=== PATIENT | female | born 1960 | race Caucasian/White ===

== ENCOUNTER → 2016-09-03 | Outpatient (CLI) | payer MEDICARE, BC ==
[~2016-09-03] MED LIST: ASPI81TA2 PO; BUPIVACAINE MPF 0.25% 10 ML VIAL. ONE; CYCL10TA2 PO; GABA-586 PO; HYDR-2762 PO; LACT1CAP2 PO; LEVO75TA PO; MECL25TA3 PO; METO-269 PO; MOVANTIK25 MG PO; MULT1TAB52 PO; OMEG1CAP6 PO; QUIN20TA7 PO; SIMV40TA PO; TERB250T PO; TRAM200T20 PO; TRAM50TA PO; TRAMADOL; TRAZ50TA15 PO; methylPREDNISolone ACETATE 40 MG/ML VIAL. ONE; tramadol
--- NOTE | 2016-09-04 00:40 | PAIN ---
DATE OF SERVICE: 09/03/2016 DIAGNOSES: 1. Chronic pain syndrome. 2. Cervical radiculopathy with post-cervical laminectomy syndrome. 3. Lumbar radiculopathy with spinal cord stimulators both lumbar and cervical. HISTORY OF PRESENT ILLNESS: The patient is a 56-year-old female who returns for followup status post medication management with both tramadol extended release and hydrocodone. The patient is also taking some Movantik for constipation, Flexeril, trazodone and gabapentin with good balance of the medications. She has been on this for some time now with good results. The patient reports approximately 75-80% improvement overall with the medication regimen. The patient reports no side effects with the medications. Recently had some surgery with hemorrhoidectomy and a rectal prolapse repair, which was causing some increased pain, but did not use any medicines above or beyond her current regimen, that was in 06/2016. The patient reports her pain is now 6 on a scale of 10, mostly in the base of the neck and left upper extremity as well as the low back and left leg without significant change. No new motor or sensory deficits, no new bowel or bladder incontinence. Again, the patient has had appropriate medication [facility] reporting and appropriate urinalysis to date. We will have an urinalysis drawn today as well as random screening. PHYSICAL EXAMINATION: VITAL SIGNS: The patient's blood pressure is 139/89, pulse 73, respirations 20, temperature 98.1 degrees Fahrenheit, height is 5 feet 3 inches, weight is 176 pounds. GENERAL: The patient is awake, alert, oriented, appropriate, very pleasant demeanor. HEENT: Head shows normocephalic, atraumatic. Extraocular movements are intact and symmetrical. Oral cavity shows mucous membranes moist and pink. Dentition is intact. NECK: Shows anterior throat supple without palpable lymphadenopathy noted. Swallow reflex is symmetrical. Neck shows full rotation and motion including extension and flexion with good range without significant difficulty. CHEST: Shows normal on inspection. Breath sounds are clear to auscultation bilaterally. HEART: Shows S1 and S2 clear. ABDOMEN: Soft, nontender, nondistended. No palpable organomegaly is noted. No rebound or guarding demonstrated. BACK: Shows spine grossly in the midline, well healed surgical scars in the cervical and lumbar distributions. Cervical paraspinous muscle shows some moderate tenderness to palpation in the inferior aspect of the bilateral cervical paraspinous muscles, more on the left than the right, but present bilaterally without asymmetry or atrophy, hypertrophy on inspection. Lumbar spine shows some moderate tenderness with palpation, but again symmetrical without evidence of atrophy or hypertrophy and only in the low lumbar distribution, is diffusely tender. No radiation. No asymmetry. The patient shows good rotation and motion of the lumbar spine as well, both laterally as well as extension and flexion without difficulty. Easily palpable spinal cord stimulator generators are again identified which are nontender with palpation. The patient's extremities show upper extremity deep tendon reflexes 2+ in the biceps and triceps tendons. Lower extremities are 1+ in the patellar and tendo calcaneus tendons. Motor exam is strong with 5/5 network support technician strength, biceps and triceps flexion with some significant tenderness in the left hand with network support technician at the base of the thumb and patient has had some difficulty with this in the past as well. PLAN: Options were discussed with the patient at that time. The patient's old chart was reviewed as her current medication regimen and updated. Current review of systems updated today as well. we will refill patient's medication as written with instructions, side effects to be aware of discussed. Also, patient will have urinalysis today as a random screening. Also discussed the patient's left thumb and she has done well with injections in the carpometacarpal joint on the first digit, the thumb on the left hand. She would like to proceed with this again and is quite tender with palpation. Risks were discussed including but not limited to bleeding, infection, possibility of intravascular injection sequelae, spread of local anesthetic and numbness, side effects of steroid medication, damage to the joint and ____ bones of the hand, exacerbation of symptoms and poor results regarding pain control. The patient understands and wishes to proceed. The patient will return to clinic in approximately 90 days or sooner if necessary. The patient was counseled as to activity levels as well as side effects to be aware of. DIAGNOSIS: Osteoarthritis, left first carpometacarpal joint. PROCEDURE: Left carpometacarpal first digit thumb joint injection with sterile prep and drape under local anesthesia. MEDICATION INJECTED: Depo-Medrol 40 mg plus 1 mL of 0.25% bupivacaine after negative aspiration. CONDITION AT DISCHARGE: Stable. The patient tolerated the procedure well, had no complications. BLU OLIVARES MD DR: Terry JOB#: [id number] / [id number]
== END ==
LOC: PNCL 10:34
PROVIDERS: ATTEND Anesthesiology
DX: M18.12 Unilateral primary osteoarthritis of first carpometacarpal joint, left hand (principal); M54.16 Radiculopathy, lumbar region; M54.12 Radiculopathy, cervical region
CPT/HCPCS: 20600; J1030; J3490

== ENCOUNTER → 2016-12-03 | Outpatient (CLI) | payer MEDICARE ==
[~2016-12-03] MED LIST changes: -BUPIVACAINE MPF 0.25% 10 ML VIAL. ONE; -methylPREDNISolone ACETATE 40 MG/ML VIAL. ONE
--- NOTE | 2016-12-04 01:06 | PAIN ---
DATE OF SERVICE: 12/03/2016 DIAGNOSES: 1. Chronic pain syndrome. 2. Cervical radiculopathy with post-cervical laminectomy syndrome. 3. Lumbar radiculopathy with spinal cord stimulation, both lumbar and cervical. HISTORY OF PRESENT ILLNESS: The patient is a 56-year-old female who returns for followup status post medication management with tramadol extended release as well as Flexeril, gabapentin and hydrocodone for breakthrough pain. The patient reports she had been doing very well with the extended release gabapentin; however, her insurance coverage had changed. She is unable to obtain it ____ about $400 a month. She is unable to afford this currently. She does have some tramadol 50 mg, which are much cheaper. She has been taking these in lieu of this, but is not having nearly the pain relief and consistency of relief that she had with extended release. The patient is somewhat frustrated about this. She is taking about 3-4 hydrocodone a day because she is not able to get the extended release tramadol, which helps her significantly. The patient reports pain is anywhere from 4 to a 7 on a scale of 10, worse with walking activity, mainly in the base of the neck, shoulder on the left side, upper back, left arm, low back, left lower extremity as previously. The patient reports stimulators are still working well; however, she is getting good coverage from these. It has not helped the pain, but more than about 50%. Overall, she is about 75% better with her extended release tramadol, but again unable to get this, recently has been a problem and her pain has been worse. The patient reports no side effects with the medications except for constipation, which she is taking Movantik for, which works very well. PHYSICAL EXAMINATION: VITAL SIGNS: The patient's blood pressure is 133/83, pulse is 76, respirations are 20, and temperature 98.1 degrees Fahrenheit. Height is 5 feet 3 inches, weighs 179 pounds. GENERAL: The patient is awake, alert, oriented, appropriate, very pleasant demeanor. HEENT: Head shows normocephalic and atraumatic. Extraocular movements are intact, symmetrical. Oral cavity, mucous membranes are moist and pink. Dentition is intact. NECK: Shows anterior throat supple without palpable lymphadenopathy noted. Swallow reflex is symmetrical. The patient has a surgical scar noted on the right side. The patient shows good rotation and motion of cervical spine, both laterally as well as extension and flexion with some minor pain reported with extension, but not with forward flexion. Posterior cervical musculature shows some putx-hj-[id number] tenderness with palpation in the middle and lower distribution of the cervical paraspinous muscles, but only diffusely without radiation. CHEST: Shows normal on inspection. Breath sounds clear to auscultation bilaterally. HEART: Shows S1 and S2 clear. No murmurs are auscultated. ABDOMEN: Obese, soft, nontender, and nondistended. No palpable organomegaly. No rebound or guarding demonstrated. BACK: Shows spine grossly midline. There is a slight increase in thoracic kyphosis and some flattening of lumbar lordotic curvature. Well-healed surgical scar is noted once again. Lumbar paraspinous musculature shows some symmetry with inspection with palpation, shows some moderate tenderness with palpation throughout the middle and lower distribution of paraspinous musculature, but only diffusely without radiation. The patient has well-healed surgical scars also stimulator battery noted in the right posterior gluteus, which is nontender and mildly mobile. EXTREMITIES: The patient's upper extremities show deep tendon reflexes 2+ in the biceps and triceps tendons. Motor exam is strong with esl tutor strength rated at 5/5 as is dorsiflexion, extension, quadriceps and hamstring flexion, lower extremities at 5/5 and equal. Peripheral pulses are 2+ in radial distribution, posterior tibial and dorsalis pedis pulses are 1+ and equal. No peripheral edema is noted in any of the extremities bilaterally. Options were discussed with the patient. The patient's old chart was reviewed as her current medication regimen and updated. Current review of systems updated today as well. We will refill the patient's tramadol in a non-extended release that she is unable to obtain this right now due to cost, also, we will have Flexeril and gabapentin renewed with instructions and side effects to be aware of, hydrocodone as well with instructions and side effects discussed, and we will try Nucynta at 200 mg extended release to substitute that for the tramadol, if this is able to be an affordable medication for her. She is going to check with her pharmacist and will contact us once she knows whether this is affordable and if so, she would try to see if it is effective for her as well. The patient was given prescription for Movantik as well as some samples that we had here today. Again instructions, side effects to be aware were discussed with all of the medications. The patient will continue to increase her activity as possible. She is using her inversion table at home, which she reports very good results with wheezing in the morning and evening ____ continue this as well. The patient will follow up in approximately 90 days or sooner if necessary and again will call with information regarding the availability of her medications. BLU OLIVARES MD DR: TYSON/abimael JOB#: [id number] / [id number]
== END | disposition home or self-care (01) ==
LOC: PNCL 13:19
PROVIDERS: ATTEND Anesthesiology
DX: M54.12 Radiculopathy, cervical region (principal); M54.16 Radiculopathy, lumbar region; G89.4 Chronic pain syndrome; M96.1 Postlaminectomy syndrome, not elsewhere classified
CPT/HCPCS: G0463

== ENCOUNTER → 2017-01-13 | Outpatient (CLI) | payer MEDICARE ==
[~2017-01-13] MED LIST changes: +BUPIVACAINE MPF 0.25% 10 ML VIAL. ONE; +methylPREDNISolone ACETATE 40 MG/ML VIAL. ONE
--- NOTE | 2017-01-14 02:48 | PAIN ---
DATE OF SERVICE: 01/13/2017 PROGRESS NOTE FOR PAIN CLINIC DIAGNOSES: 1. Chronic pain syndrome. 2. Cervical radiculopathy with post-cervical laminectomy syndrome. 3. Chronic lumbar radiculopathy with spinal cord stimulators both cervical and lumbar stenosis. HISTORY OF PRESENT ILLNESS: The patient is a 56-year-old female, who returns for followup status post medication management. The patient is able to get her tramadol extended release covered once again through her insurance provider and she is getting that refilled currently. The patient also taking hydrocodone for breakthrough pain. I have been seen her in November with evaluation refills of those at that time, we tried Nucynta; however, she did not ____ filled, because the approval came through for her extended release tramadol in the meantime, the patient reports doing well with medications. No new side effects or other complaints, reports this does decrease the pain about ____. Her chief complaint today is her left hand and thumb was significant pain in the carpometacarpal joint, on the first digit of the thumb in the left hand, she has had difficulty with this in the past. We have an injection the joint before with excellent results. She had about 100% relief for 4 months after the last injection. The patient reports otherwise doing fairly well. No new motor or sensory deficits, no new changes. PHYSICAL EXAMINATION: VITAL SIGNS: Today, the patient's blood pressure is 151/87, pulse 81, respirations are 18, temperature is 97.8 degrees Fahrenheit, weight 179 pounds. GENERAL: The patient is awake, alert, oriented, appropriate, very pleasant demeanor. HEENT: Head shows normocephalic, atraumatic. Extraocular movements are intact, symmetrical. Oral cavity, mucous membranes are moist and pink. Dentition is intact. NECK: Shows anterior throat supple without palpable lymphadenopathy noted. Swallow reflex is symmetrical. CHEST: Shows normal on inspection. Breath sounds are clear to auscultation bilaterally. HEART: Shows S1 and S2 clear. ABDOMEN: Soft, nontender, nondistended. No palpable organomegaly. No rebound or guarding demonstrated. BACK: Shows spine grossly midline. There is some moderate tenderness with palpation in the posterior cervical musculature as well as the lumbar paraspinous musculature, but appears roughly symmetrical. No atrophy, hypertrophy, no radiation of pain demonstrated. The patient has spinal cord stimulator is easily palpable and nontender as well. Options were discussed with the patient and the patient's old chart was reviewed as her current medication regimen and updated. Current review of systems updated today as well. We will proceed with left carpometacarpal injection first digit on the left hand and thumb. Risks were again discussed including, but not limited to bleeding, infection, possibility of intravascular injection sequelae, spread of local anesthetic and numbness, side effects of steroid medication and exposure to fluoroscopy and poor results regarding pain control. The patient understands and wishes to proceed. The patient will return to clinic in approximately 4 weeks for followup as scheduled and will refill her tramadol extended release as well. The patient was given instruction as well as side effects to be aware of with tolerated procedure, but also with medications. Also, the patient has a spinal cord stimulator will be evaluated today and reprogrammed as necessary [email or web address] merchandising representative is here today to perform this based on those results, we will discuss either further reprogramming with the stimulator possible replacement in the future, etc. The patient will follow up as scheduled. DIAGNOSES: Primary osteoarthritis, left first carpometacarpal joint. PROCEDURE: Intra-articular joint injection left first carpometacarpal joint using local anesthetic under sterile prep and drape. Medication injected a total of 40 mg of Depo-Medrol plus total of 1 mL, 0.25% bupivacaine after negative aspiration. CONDITION AT DISCHARGE: Stable. The patient tolerated the procedure well, had no complications. BLU OLIVARES MD DR: TYSON/abimael JOB#: [id number] / [id number]
== END | disposition home or self-care (01) ==
LOC: PNCL 07:45
PROVIDERS: ATTEND Anesthesiology
DX: M19.042 Primary osteoarthritis, left hand (principal)
CPT/HCPCS: 20600; J1030; J3490

== ENCOUNTER → 2017-02-25 | Outpatient (CLI) | payer MEDICARE ==
[~2017-02-25] MED LIST changes: +ASPI-630 PO; -ASPI81TA2 PO; -BUPIVACAINE MPF 0.25% 10 ML VIAL. ONE; -methylPREDNISolone ACETATE 40 MG/ML VIAL. ONE
== END | disposition home or self-care (01) ==
LOC: PNCL 11:27
PROVIDERS: ATTEND Anesthesiology
DX: G89.4 Chronic pain syndrome (principal); M54.12 Radiculopathy, cervical region; M48.02 Spinal stenosis, cervical region; M48.06 Spinal stenosis, lumbar region; Z98.890 Other specified postprocedural states
CPT/HCPCS: G0463

== ENCOUNTER → 2017-04-21 | Outpatient (CLI) | payer MEDICARE ==
[~2017-04-21] MED LIST changes: +BUPR300T3 PO; +QUIN20TA17 PO; -QUIN20TA7 PO
--- NOTE | 2017-04-21 13:07 | PAIN ---
DATE OF SERVICE: 04/21/2017 DIAGNOSES: 1. Chronic pain syndrome. 2. Cervical radiculopathy with post-cervical laminectomy syndrome. 3. Lumbar radiculopathy. 4. Spinal cord stimulators, both cervical and lumbar. HISTORY OF PRESENT ILLNESS: The patient is a 56-year-old female who returns for followup status post spinal cord stimulator therapy as well as medication management. The patient is taking hydrocodone as well as Toradol, Flexeril and gabapentin. The patient reports she has been doing very well with this and indeed has been on very stable regimen for many years with the similar regimens of medication. The patient reports no significant side effects with about a 75% to 80% improvement overall with the medications and the spinal cord stimulators combined. The patient reports good functioning of her stimulators, both cervical and lumbar with easy chargeability in good duration of stimulation and good coverage of stimulation. The patient reports no new motor or sensory deficits, no new bowel or bladder incontinence or other complaints. The patient reports significant pain in the base of the neck, shoulders, more on the right than the left in the upper back and neck and also low back radiating to the posterior left lower extremity, again fairly well covered with the stimulator coverage on both areas. The patient reports the pain is 8 on a scale of 10 at its worst, 5 on average and 4 on scale of 10 the least; aching, shooting, burning, tingling and constant pain to some extent, more in the neck and the back. The patient reports it awakens her from sleep occasionally, not every night, sleeps about 4 hours a night at times and reposition and get back to sleep most times. The patient reports no new motor or sensory deficits, no new bowel or bladder incontinence or other complaints. PHYSICAL EXAMINATION: VITAL SIGNS: The patient's blood pressure 124/81, pulse 63, respirations 18, temperature 97.8 degrees Fahrenheit, height is 5 feet 3 inches, weight is 177 pounds. GENERAL: The patient is awake, alert, oriented, appropriate, very pleasant demeanor. HEENT: Head shows normocephalic, atraumatic. Extraocular movements are intact, symmetrical. Oral cavity, mucous membranes are moist and pink. Dentition is intact. NECK: Shows anterior throat supple without palpable lymphadenopathy noted. Swallow reflex is symmetrical. CHEST: Shows normal on inspection. Breath sounds are clear to auscultation bilaterally. HEART: Shows S1 and S2 clear. No murmurs auscultated. ABDOMEN: Obese, soft, nontender, nondistended. No palpable organomegaly is noted. No rebound or guarding demonstrated. BACK: Shows spine grossly in midline with well-healed surgical scar noted in the cervical distribution as well as in the lumbar distribution. Cervical paraspinous muscle shows some moderate tenderness to palpation diffusely bilaterally, but without radiation. EXTREMITIES: The patient's lower extremity showed deep tendon reflexes at 1+ in the patellar and tendo calcaneus tendons. Motor exam is strong with dorsiflexion, extension, quadriceps and hamstring flexion rated at 5/5. Upper extremity showed deep tendon reflexes 2+ in the biceps and triceps tendons. Motor exam is 5/5 with screen tender helper strength, biceps and triceps flexion. Peripheral pulses are 2+ radial distribution and 1+ posterior tibial and dorsalis pedis. No peripheral edema is noted in any of the extremities. Options were discussed with the patient and the patient's old chart was reviewed as her current medication regimen and updated. Current review of systems is updated today as well and we will continue the patient's medical management. The patient lives a fair distance from our office in [place] across state lines and we discussed previously with the patient as she is unable to fill her prescriptions in [place] where [facility] reporting is available. We would be unable to have her fill this in [place] or different state without reporting available. The patient has spoken with her primary care physician and he has agreed to fill the medications for her as she does live in [place] and he is in [place]. We discussed that we will be available for any type of further future advice or reevaluation of her medication regimen as we have done in the past, also available for any interventional need. She needs her spinal cord stimulator questions or maintenance. The patient understands and agrees and we will follow up with her primary care physician regarding her medication management from this point forward. BLU OLIVARES MD DR: TYSON/abimael JOB#: [id number] / [id number]
== END | disposition home or self-care (01) ==
LOC: PNCL 10:33
PROVIDERS: ATTEND Anesthesiology
DX: M54.16 Radiculopathy, lumbar region (principal); M54.12 Radiculopathy, cervical region; G89.4 Chronic pain syndrome
CPT/HCPCS: 99212

== ENCOUNTER → 2018-10-26 | Outpatient (CLI) | payer MEDICARE, OTHER ==
[~2018-10-26] MED LIST changes: -GABA-586 PO; +GABA300C18 PO; -HYDR-2762 PO; +HYDR-2765 PO; +HYDR-2769 PO; +RANI150C PO; +SIMV20TA3 PO; +TRAZ-118 PO; -TRAZ50TA15 PO
--- NOTE | 2018-10-27 01:49 | PAIN ---
DATE OF SERVICE: 10/26/2018 DIAGNOSES: 1. Chronic pain syndrome. 2. Cervical radiculopathy with cervical post-laminectomy syndrome. 3. Lumbar radiculopathy with spinal cord stimulation both cervical and lumbar. HISTORY OF PRESENT ILLNESS: The patient is a 58-year-old female who returns for followup, last seen in 2016. The patient was being managed with medication management. She has relocated this to a clinic in [place] as she lives there and is much closer to her home. She returns today with the complaint of her cervical stimulator generator having some messages on its recharging monitor that it is nearing its end of life term and is looking to investigate this as well as take care of the stimulators. The patient reports it worked very well for her. She gets very good stimulation both from the cervical stimulator and the lumbar stimulator and is very pleased with the stimulation she receives and does very well with very good pain control. The patient had a [employer] rep meet her here today at the clinic and indeed has investigated and interrogated the stimulator and it has a rechargeable life of about 3 months left and we will get her scheduled to replace this in the near future. The patient reports otherwise she is doing fairly well, still some pain in the base of the neck, left shoulder, upper extremities as well as the low back and left leg, but again very well controlled especially the low back and left leg with the stimulation and until recently in the neck and arm as well, very well controlled with the stimulator, not holding its charges well recently. The patient reports her pain is an 8 on a scale of 10 at its worst, 4 on average, 4 at its least and is a 4 today. Describes as aching, stabbing, constant in the neck and shoulder, again significantly reduced by about 75-80% with the stimulation both neck and low back. The patient reports no new motor or sensory deficits, no other changes. She has increased her distance walking, does work activities, household activities with greater ease and comfort, travels with greater ease and comfort with the stimulators on and sleeps well at night, occasionally wakes her from sleep with the neck and shoulder. Otherwise, she does fairly well. PHYSICAL EXAMINATION: VITAL SIGNS: The patient's blood pressure 141/95, pulse 74, respirations 16, temperature 98.2 degrees Fahrenheit, height is 5 feet 3 inches, weighs 176 pounds. GENERAL: The patient is awake, alert, oriented, appropriate, very pleasant demeanor. HEENT: Head shows normocephalic, atraumatic. Extraocular muscles are intact and symmetrical. Oral cavity: Mucous membranes moist and pink. Dentition intact. NECK: Shows anterior throat supple without palpable lymphadenopathy noted. Swallow reflex is symmetrical. CHEST: Shows normal on inspection. Breath sounds clear to auscultation bilaterally. HEART: Shows S1, S2 clear. No murmurs auscultated. ABDOMEN: Soft, obese, nontender, nondistended. No palpable organomegaly is noted. No rebound or guarding demonstrated. BACK: Shows spine grossly in the midline. Normal appearing cervical lordotic curvature with slightly increased thoracic kyphotic curvature and some mild flattening of lumbar lordotic curvature. Well-healed surgical scars noted in both the lumbar and cervical distribution from previous stimulator insertions. Easily palpable stimulator generator on the right mid low back and over the right posterior hip. The patient has well-healed surgical scars over the generators as well. The patient has good rotational motion of the lumbar spine as well as the cervical spine with extension and flexion forward and right and left lateral rotation of the cervical spine greater than 45 degrees closer to 90 degrees without difficulty. Low back shows 10 degrees without difficulty, right and left as well as extension and flexion in the lumbar spine as well. EXTREMITIES: The patient's upper extremities show deep tendon reflexes at 2+ in the biceps and triceps tendons, 1+ patellar and tendo calcaneus tendons. Motor exam is strong with 5/5 scalemaker strength, biceps, tricep flexion as well as dorsiflexion, extension, quadriceps and hamstring flexion all symmetrical. Peripheral pulses are 2+ radial, 1+ posterior tibial. No peripheral edema is noted in the extremities. Options were discussed with the patient. The patient's old chart was reviewed as her current medication regimen updated. Current review of systems updated today as well. We will schedule the patient for replacement of the cervical spinal cord stimulator generator in the near future. The patient will maintain charges of both these lumbar and cervical generators in the meantime and we will work with the [employer] shared services representative for changing the stimulator for the cervical generator as scheduled. BLU OLIVARES MD DR: TYSON/abimael JOB#: [id number] / [id number]
== END | disposition home or self-care (01) ==
LOC: PNCL 11:04
PROVIDERS: ATTEND Anesthesiology
DX: M54.16 Radiculopathy, lumbar region (principal); M54.12 Radiculopathy, cervical region; M96.1 Postlaminectomy syndrome, not elsewhere classified; G89.4 Chronic pain syndrome
CPT/HCPCS: G0463

== ENCOUNTER 2018-12-08 12:30 | Day surgery (SDC) | payer MEDICARE, OTHER ==
[~2018-12-08 12:30] MED LIST changes: +BACITRACIN 50,000 UNIT in IV NORMAL SALINE 500ML BAG 500 ML IRR ONE; -HYDR-2769 PO; +HYDROmorphone 2 MG/ML VIAL IV PRN; +IV RINGERS,LACTATED 1000ML 1,000 ML IV SCH; +MORPHINE SULFATE 2 MG/ML VIAL. IV PRN; +ONDANSETRON PF 4 MG/2 ML VIAL. IV PRN; +PROCHLORPERAZINE 10 MG/2 ML VIAL. IV PRN; +fentaNYL PF VIAL 100 MCG/2 ML VIAL IV PRN
--- NOTE | 2018-12-08 12:33 | PREOP HP ---
DATE OF SERVICE: 12/08/2018 PREOPERATIVE HISTORY AND PHYSICAL: DIAGNOSES: 1. Chronic pain syndrome. 2. Cervical radiculopathy with cervical post-laminectomy syndrome. 3. Lumbar radiculopathy with spinal cord stimulation, both cervical and lumbar. HISTORY OF PRESENT ILLNESS: This is a 58-year-old female who returns for evaluation of a spinal cord stimulator superior location. The patient reports she is having difficulty with keeping the battery charged and has some messages on the recharging monitor that it is nearing its end of life term and is looking to get this replaced. The patient reports this worked very well for her. She had good pain control and gets good stimulation from both the cervical stimulator and the lumbar stimulator. The patient had the [employer] rep meet with her as well and indeed the stimulator does need to be replaced with rechargeable life span. The patient reports otherwise doing fairly well. Still has some pain in the base of the neck, left shoulder, upper extremity as well as the low back and left leg, but again very well controlled, especially in the low back and left leg with the stimulation until recently in the neck and arm as well. The patient reports the pain is 8 on a scale of 10 at its worst, 4 on average, 4 at its least, aching, stabbing, constant in the neck and shoulder again significantly reduced by about 75-80% with the stimulation from the neck and the low back. PHYSICAL EXAMINATION: VITAL SIGNS: The patient's blood pressure is 141/95, pulse 74, respirations 16, temperature 98.2 degrees Fahrenheit, height is 5 feet 3 inches, weighs 176 pounds. GENERAL: The patient is awake, alert, oriented, appropriate, very pleasant demeanor. HEENT: Head shows normocephalic, atraumatic. Extraocular movements are intact and symmetrical. Oral cavity: Mucous membranes moist and pink. Dentition is intact. NECK: Shows anterior throat supple without palpable lymphadenopathy noted. Swallow reflex is symmetrical. CHEST: Shows normal on inspection. Breath sounds are clear to auscultation bilaterally. HEART: Shows S1, S2 clear. No murmurs auscultated. ABDOMEN: Soft, obese, nontender, nondistended. No palpable organomegaly is noted. No rebound or guarding demonstrated. BACK: Shows grossly midline spine, normal-appearing cervical lordotic curvature, slightly increased thoracic kyphotic curvature and some mild flattening of lumbar lordotic curvature. Well-healed surgical scars noted in both lumbar and cervical distribution from previous stimulator insertions, easily palpable stimulator generator in the right mid, low back and over the right posterior hip as well. The patient has well-healed scars over the generators on both places. The patient has good rotational motion of lumbar spine. EXTREMITIES: The patient's upper extremities show deep tendon reflexes 2+ in the biceps and triceps tendons, 1+ patellar and tendo calcaneus tendons. Motor exam is strong with 5/5 fashion marketer strength, bicep and tricep flexion as well as dorsiflexion, extension, quadriceps and hamstring flexion symmetrical. Peripheral pulses are 2+ radial, 1+ posterior tibia. No peripheral edema is noted in the upper or lower extremities. PLAN: The patient will be scheduled for replacement of the cervical spinal cord stimulator generator with [employer] replacement. We will have the [employer] guest services representative present as well for changing the stimulator for the cervical distribution as scheduled. BLU OLIVARES MD DR: TYSON/abimael JOB#: [id number] / [id number]
[2018-12-08] MEDS ORDERED: BACITRACIN 50,000 UNIT VIAL. IRR ONE (13:36)
[2018-12-08] MEDS ORDERED: LIDOCAINE 1%/EPI 1:100,000 20 ML VIAL. ONE ×5 (13:36→13:39)
[2018-12-08] MEDS ORDERED: IOHEXOL 300 MG/ML 50 ML VIAL. ONE (13:36)
[2018-12-08] MEDS ORDERED: ONDANSETRON PF 4 MG/2 ML VIAL. ONE (14:37)
[2018-12-08] MEDS ORDERED: LIDOCAINE 2% PF 5 ML VIAL. ONE (14:37)
[2018-12-08] MEDS ORDERED: PROPOFOL 20 ML IV ONE (14:37)
[2018-12-08] MEDS ORDERED: DEXAMETHASONE SOD PHOS 4 MG/ML VIAL ONE ×2 (14:38)
[2018-12-08] MEDS ORDERED: fentaNYL PF VIAL 100 MCG/2 ML VIAL ONE ×2 (14:38→17:21)
[2018-12-08] MEDS ORDERED: ROCURONIUM 50 MG/5 ML VIAL. ONE (14:38)
[2018-12-08] MEDS ORDERED: MIDAZOLAM HCL/PF 2 MG/2 ML VIAL. ONE (14:39)
[2018-12-08] MEDS ORDERED: ePHEDrine PF IN SALINE 50 MG/10 ML SYRINGE. IV ONE (15:37)
[2018-12-08] MEDS ORDERED: PHENYLEPHRINE in 0.9% NACL PF 1 MG/10 ML SYRINGE. IV ONE (16:16)
[2018-12-08] MEDS ORDERED: SEVOFLURANE > 120 MINUTES. IH ONE (17:09)
--- NOTE | 2018-12-08 17:09 | DISCH ---
DISCHARGE INSTRUCTIONS Condition on Discharge Condition on Discharge: Stable Activity After Discharge Activity Instructions for Disc: Activity as tolerated, Avoid exertion Bathing Instructions: Shower-keep dressing dry, No Tub Bath until see Lifting Instructions after Dis: No heavy lifting, Do not lift >10 pounds Exercise Instruction after Dis: Progress as tolerated Driving Instructions after Dis: Do not drive today Weight Bearing Status after Di: As tolerated Diet after Discharge Diet after Discharge: Regular Wound Incision Care Wound/Incision Care: Reinforce dressing PRN Contacting the DRSagar after DC Call your doctor for: Concerns you may have BLU OLIVARES MD Dec 08, 2018 17:09
[2018-12-08] MEDS: fentaNYL PF VIAL 100 MCG/2 ML VIAL IV PRN ×2 (17:23→17:36)
[2018-12-08] MEDS ORDERED: HYDR-2769 PO (17:39)
[2018-12-08] MEDS ORDERED: HYDROcodone/APAP 10/325 1 TAB TABLET PO ONE (18:00)
[2018-12-08 18:10] VITALS: BP 122/73
--- NOTE | 2018-12-09 09:31 | OP ---
DATE OF SURGERY: 12/08/2018 PROCEDURE NOTE: PREOPERATIVE DIAGNOSES: Chronic pain syndrome with cervical radiculopathy and cervical post-laminectomy syndrome, also with failure of a spinal cord stimulator battery at end of battery life. POSTOPERATIVE DIAGNOSES: Chronic pain syndrome with cervical radiculopathy and cervical post-laminectomy syndrome, also with failure of a spinal cord stimulator battery at end of battery life. PROCEDURE: Removal and replacement of a spinal cord stimulator generator. BLOOD LOSS: 25 mL. ANESTHESIA: General endotracheal and local at the site. COMPLICATIONS: None. DESCRIPTION OF PROCEDURE: The patient was consented for the procedure with risks discussed including, but not limited to bleeding, infection, possibility of revision of the entire system including wires instead of just the battery replacement for the generator as well as poor results regarding pain control and postoperative pain. The patient understands and wished to proceed. The patient was taken to the operating room #8 and ASA monitors were placed. General anesthesia was induced, general endotracheal. The patient was then rolled into the prone position with pressure points padded and breath sounds clear to auscultation bilaterally. The patient's back was then sterilely prepped and draped in usual fashion with sterile prep allowed to dry for 3 minutes prior to draping. The patient was draped in usual fashion. Examined the patient's back and the right superior lumbar paraspinous distribution of the located spinal cord stimulator for the cervical distribution generator that is for the cervical distribution using 1% without epinephrine, lidocaine was instilled in a transverse fashion beneath the previous surgical scar also in a transverse fashion. After this, using a 15 blade scalpel, the incision was made in a transverse fashion once again to encompass approximately 8 cm medial to lateral. Incision was continued into the superficial adipose tissue and fascia to expose the spinal cord stimulator generator that was exposed without difficulty using combination of blunt and dull dissection via electrocautery. Bipolar was used as well as pressure and irrigation to control any local hemorrhage which was very minimal at this time. The sutures were then examined and cut holding the generator in place and the generator was expressed from the generator pouch without difficulty. Generator leads were then removed with a [employer] screwdriver kit for the stimulator locking lead mechanism. Leads were removed without difficulty. New generator was then examined and the leads were placed in the inferior aspect row of the generator without difficulty. The superior leads row, however, would not advance past about mid distance of the lead and itself into the new generator. This was attempted several times without ability to advance the lead into the new generator on the superior upper row with any success. At this time, the pocket was reexamined and the lead was then dissected away from the scar tissue to the bifurcation as the patient has dual lead bifurcation on each of the original leads and this was removed as well dissecting from the scar tissue. Again, local hemorrhage was controlled using bipolar electrocautery as well as irrigation and local pressure. This was exposed and the old leads then removed with sutures removed, squeezed over the junction from the bifurcated lead were then removed without difficulty. The new bifurcated lead was then replaced over the old superior leads x 2 without difficulty and impedances were checked and the leads were locked over the squeeze on the bifurcated lead x 2. At this time, the new lead from bifurcation was then inserted into the superior aspect of the new generator without difficulty and with good impedance read in all leads upper and lower rows at this time and the leads were secured with a [employer] walking screwdriver mechanism as well. A pocket was reexamined and irrigated with bacitracin irrigation x 3, no significant local hemorrhage was identified after this. The generator and the leads were then replaced back into the pocket with the leads inferior and the generator on the most superficial aspect of the pocket. This was secured with #2 silk sutures to the anchoring devices on the lead to create a more medial pocket to the medial aspect of the pocket previously as the older stimulator was much larger than the newer one. This was placed without difficulty and the pocket was then reinspected, no local hemorrhage was noted, was then closed using 2-0 for the lower fascia interrupted suture fashion and then the running suture of 3-0 Vicryl for the skin closure. Mastisol, Steri-Strips and a sterile island Tegaderm dressing was then placed. The patient tolerated procedure well, had no immediate complications and was transferred to the recovery room in good awake and stable condition. The patient will follow up in approximately 1 week for wound check at that time. Also, [employer] claims service representative, Anna Mccartney, was present with reprogramming of the stimulator in the recovery room as well. BLU OLIVARES MD DR: TYSON/abimael JOB#: [id number] / [id number]
--- NOTE | 2019-01-02 10:31 | PDOC4 ---
OPERATIVE NOTE Date: Date: Dec 08, 2018 Pre-Op Diagnosis: failed spinal cord stimulator generator Post-Op Diagnosis: same Procedure Performed: removal and replacement SCS generator Surgeon: Gume Anesthesia Type: GEN Blood Loss: 15cc Specimans Obtained: old SCS generator Findings: as dictated Complications: none BLU OLIVARES MD January 02, 2019 10:31
== END 2018-12-08 18:35 | disposition home or self-care (01) ==
LOC: SURG 12:30
PROVIDERS: ATTEND Anesthesiology
DX: Z45.42 Encounter for adjustment and management of neurostimulator (principal); G89.4 Chronic pain syndrome; M96.1 Postlaminectomy syndrome, not elsewhere classified; Z88.1 Allergy status to other antibiotic agents; Z88.8 Allergy status to other drugs, medicaments and biological substances; M54.16 Radiculopathy, lumbar region; M54.12 Radiculopathy, cervical region
CPT/HCPCS: 63685; A7015; C1713; C1767; C1787; J0171; J1100; J2001; J2250; J2370; J2405; J2704; J3010; J3490; J7120; J7040; Q9967

== ENCOUNTER → 2018-12-22 | Outpatient (CLI) | payer MEDICARE, OTHER ==
[2018-12-08 18:10] VITALS: BP 122/73
[~2018-12-22] MED LIST changes: -BACITRACIN 50,000 UNIT in IV NORMAL SALINE 500ML BAG 500 ML IRR ONE; +HYDR-2769 PO; -HYDROmorphone 2 MG/ML VIAL IV PRN; -IV RINGERS,LACTATED 1000ML 1,000 ML IV SCH; -MORPHINE SULFATE 2 MG/ML VIAL. IV PRN; -ONDANSETRON PF 4 MG/2 ML VIAL. IV PRN; -PROCHLORPERAZINE 10 MG/2 ML VIAL. IV PRN; -fentaNYL PF VIAL 100 MCG/2 ML VIAL IV PRN
--- NOTE | 2018-12-23 00:45 | PAIN ---
DATE OF SERVICE: 12/22/2018 PROGRESS NOTE FOR PAIN CLINIC: DIAGNOSES: 1. Chronic pain syndrome. 2. Cervical radiculopathy with post-cervical laminectomy syndrome. 3. Lumbar radiculopathy with both cervical and lumbar spinal cord stimulator systems. HISTORY OF PRESENT ILLNESS: The patient is a 58-year-old female who returns for followup status post replacement of spinal cord stimulator generator for her cervical system distribution. The patient is now 2 weeks postop, reports that she is doing quite well, getting good stimulation in the neck and shoulders as she had previously, but some tenderness in the neck as well. The patient reports it is tingling, stabbing, sharp and constant at times, rates a 9 on a scale of 10 at its worst, 6 on average, 5 at its least, but is a 5 today. The patient reports no new motor or sensory deficits, no new bowel or bladder incontinence. There is some deeper pain that is near the wound where it is healing in the medial aspect of the area of the pocket on her right low to mid back. The patient reports otherwise doing fairly well. No new changes. No new bowel or bladder incontinence or other complaints. PHYSICAL EXAMINATION: VITAL SIGNS: The patient's blood pressure is 148/60, pulse 61, respirations 16, temperature 98.1 degrees Fahrenheit, weight is 175 pounds. GENERAL: The patient is awake, alert, oriented, appropriate, very pleasant demeanor. HEENT: Head shows normocephalic, atraumatic. Extraocular movements are intact and symmetrical. Oral cavity: Mucous membranes are moist and pink. Dentition is intact. NECK: Shows anterior throat supple without palpable lymphadenopathy noted. Swallow reflex symmetrical. CHEST: Shows normal with inspection. Breath sounds clear to auscultation bilaterally. HEART: Shows S1, S2 clear. No murmurs auscultated. ABDOMEN: Soft, nontender, nondistended. BACK: The patient's back shows spine grossly in the midline. Well-healed surgical scarring and first surgical scar from spinal cord stimulator generator replacement on the right of midline in the mid low back with Steri-Strips still in place, but no erythema, no significant tenderness. No drainage around the wound which is healing well with good scabbing and is likely dressed with very clean dressing and Tegaderm. Options were discussed with the patient. The patient's old chart was reviewed as her current medication regimen updated. Current review of systems updated today as well. We will have the patient keep the wound open to air at this time with a very light dressing over to air to circulate around the wound. The patient will increase her activity as tolerated and okayed for showering but no scrubbing or soaking of the wound for another 2 weeks. The patient will return to clinic at this time on as needed basis. The patient did have [employer] underwriting account representative present today with some programming done on the stimulator as well and reports good coverage of the areas of pain with the stimulator upon completion of this. BLU OLIVARES MD DR: TYSON/abimael JOB#: [id number] / [id number]
== END | disposition home or self-care (01) ==
LOC: PNCL 10:42
PROVIDERS: ATTEND Anesthesiology
DX: M54.12 Radiculopathy, cervical region (principal); M54.16 Radiculopathy, lumbar region; M96.1 Postlaminectomy syndrome, not elsewhere classified; G89.4 Chronic pain syndrome
CPT/HCPCS: G0463

== ENCOUNTER → 2019-04-10 | Outpatient (CLI) | payer MEDICARE, OTHER ==
--- NOTE | 2019-04-11 07:29 | PAIN ---
DATE OF SERVICE: 04/10/2019 PROGRESS NOTE FOR PAIN CLINIC DIAGNOSES: 1. Chronic pain syndrome. 2. Cervical radiculopathy with post-cervical laminectomy syndrome with spinal cord stimulator. 3. Lumbar radiculopathy with spinal cord stimulator. HISTORY OF PRESENT ILLNESS: The patient is a 58-year-old female who returns for followup, last seen on 12/22/2018. The patient had a spinal cord stimulator generator replaced on 12/08/2018 for her cervical system. She is having difficulty to having it hold the charge. She met with [employer] group sales representative today as well and our office and he confirms that it is no longer functional, is not holding charges, is not programmable and is dysfunctional and needs to be replaced. The patient reports still significant pain in the neck, shoulders, upper arms without coverage from the stimulator. Her lumbar stimulator, however, is working quite well. She does have 2 systems. The patient reports no new motor or sensory deficits or other complaints. Rates her pain as an 8 on a scale of 10 at its worst in the past week, 7 on average, 6 at its least and is 8 today. The patient reports no new changes or other complaints. PHYSICAL EXAMINATION: VITAL SIGNS: The patient's blood pressure 136/74, pulse 67, respirations 18, temperature 98.0 degrees Fahrenheit, and height is 5 feet 3 inches. GENERAL: The patient is awake, alert, oriented, appropriate, very pleasant demeanor. HEENT: Shows normocephalic, atraumatic. Extraocular movements are intact and symmetrical. Oral cavity, mucous membranes are moist and pink. NECK: Shows anterior throat supple. CHEST: Shows breath sounds clear to auscultation bilaterally. HEART: Shows S1, S2 clear. BACK: The patient's back shows spine grossly in midline. Well-healed surgical scars noted in the right low back with easily palpable spinal cord stimulator, which is slightly protruding on the lateral aspect of its incision site, but not tender with palpation. ASSESSMENT AND PLAN: Options were discussed with the patient. The patient's old chart was reviewed as her current medication regimen updated. Current review of systems updated today as well and we will make arrangements to replace the stimulator generator for her cervical system, the [employer] systems and group sales representative present today. We will make the arrangements through Surgery and have it replaced soon. BLU OLIVARES MD DR: Terry JOB#: [id number] / [id number]
== END | disposition home or self-care (01) ==
LOC: PNCL 14:27
PROVIDERS: ATTEND Anesthesiology
DX: M54.16 Radiculopathy, lumbar region (principal); M54.12 Radiculopathy, cervical region; G89.4 Chronic pain syndrome
CPT/HCPCS: G0463

== ENCOUNTER → 2019-05-11 | Day surgery (SDC) | payer MEDICARE, OTHER ==
[~2019-05-11] VITALS: Ht 160 cm; Wt 79.3 kg
[~2019-05-11] MED LIST changes: +BACITRACIN 50,000 UNIT in IV NORMAL SALINE 500ML BAG 500 ML IRR ONE; +DEXAMETHASONE SOD PHOS 4 MG/ML VIAL ONE; +ESOM40CA PO; +HYDROcodone/APAP 7.5/325MG 1 TAB TABLET ONE; +HYDROcodone/APAP 7.5/325MG 1 TAB TABLET PO ONE; +HYDROmorphone 2 MG/ML VIAL IV PRN; +IOHEXOL 300 MG/ML 50 ML VIAL. ONE; +IV RINGERS,LACTATED 1000ML 1,000 ML IV SCH; +LIDOCAINE 1% PF 2 ML VIAL. ID PRN; +LIDOCAINE 1%/EPI 1:100,000 20 ML VIAL. ONE; +LIDOCAINE 2% PF 5 ML VIAL. ONE; +MORPHINE SULFATE 2 MG/ML VIAL. IV PRN; +ONDANSETRON PF 4 MG/2 ML VIAL. IV PRN; +ONDANSETRON PF 4 MG/2 ML VIAL. ONE; +PHENYLEPHRINE in 0.9% NACL PF 1 MG/10 ML SYRINGE. IV ONE; +PROCHLORPERAZINE 10 MG/2 ML VIAL. IV PRN; +PROPOFOL 20 ML IV ONE; +SEVOFLURANE 61 TO 120 MINUTES. IH ONE; +SUCCINYLCHOLINE 200 MG/10 ML VIAL. ONE; +ePHEDrine PF IN SALINE 50 MG/10 ML SYRINGE. IV ONE; +fentaNYL PF VIAL 100 MCG/2 ML VIAL IV PRN; +fentaNYL PF VIAL 100 MCG/2 ML VIAL ONE
--- NOTE | 2019-05-11 13:42 | DISCH ---
DISCHARGE INSTRUCTIONS Condition on Discharge Condition on Discharge: Stable Activity After Discharge Activity Instructions for Disc: Activity as tolerated, Avoid exertion Bathing Instructions: Shower-keep dressing dry, No Tub Bath until see Lifting Instructions after Dis: No heavy lifting, Do not lift >10 pounds Exercise Instruction after Dis: Progress as tolerated Driving Instructions after Dis: Do not drive today Weight Bearing Status after Di: As tolerated Diet after Discharge Diet after Discharge: Regular Wound Incision Care Wound/Incision Care: Reinforce dressing PRN Contacting the DRSagar after DC Call your doctor for: Concerns you may have BLU OLIVARES MD May 11, 2019 13:41
[2019-05-11] MEDS: fentaNYL PF VIAL 100 MCG/2 ML VIAL IV PRN ×2 (14:05→14:12)
[2019-05-11 14:08] VITALS: BP 142/79
--- NOTE | 2019-05-12 00:28 | OP ---
DATE OF SURGERY: 05/11/2019 PREOPERATIVE DIAGNOSES: Post-lumbar laminectomy syndrome and post-cervical laminectomy syndrome. POSTOPERATIVE DIAGNOSES: Post-lumbar laminectomy syndrome and post-cervical laminectomy syndrome. PROCEDURE: Spinal cord stimulator generator removal and replacement. ANESTHESIA: General endotracheal. ESTIMATED BLOOD LOSS: 10 mL. COMPLICATIONS: None. DESCRIPTION OF PROCEDURE: The patient was consented for procedure with risks discussed including, but not limited to bleeding, infection, possibility of replacement of system as well as generator as well as postoperative pain and poor results regarding pain control group home. The patient understands and wished to proceed. The patient was taken to operating room, suite #9. General anesthesia was induced. The patient was placed in prone position with pressure points padded. Breath sounds clear bilaterally. The patient's back was then prepped and draped after 3 minutes of drying time. The patient was draped. The patient's right lumbar paraspinous distribution was showing easily palpable spinal cord stimulator generator. This area was then anesthetized in a transverse fashion, approximately 2 cm beneath the previous surgical scar from the last implantation of the generator with 1% lidocaine with 1:200,000 epinephrine. Using a 10 blade scalpel, the skin was incised through the anesthetized area in transverse fashion approximately 7 cm in length. Local hemorrhage was controlled using pressure and irrigation. The dissection was continued with Metzenbaum scissors to open up the pocket of the spinal cord stimulator generator, which was done without difficulty. Generator was expressed from the pocket without difficulty as well and removed, disconnected from the original spinal cord stimulator leads. A lower lead on the generator showed some bending and potential fracture on inspection, and this was replaced during the procedure as well and the spinal cord stimulator generator and the lead was intact and in very good condition. Old generator was removed. New generator was inspected. The new wires with bifurcating paddles were then ____; the old ones were removed, that is, the new were replaced with locking screws and a sheath placed over the locking screws on the bifurcating lead extensions. The new leads were then placed into the new generator. Impedances were checked with Mr. Blu Marx and all impedances showed good contact and good connectivity. At this time, the generator and new extension wires were placed into the pocket. For fitment, pocket was then inspected. No local hemorrhage was identified. Bacitracin irrigation was used x 3 and reinspected without local hemorrhage. The wires and generator were then replaced after locking the new leads along with the locking screwdriver mechanisms ____ the generator itself, placed into the pocket. Pocket was then closed with 2-0 interrupted Vicryl sutures and 3-0 running suture for the skin closure. Steri-Strips and Mastisol as well as island dressing were then applied. The patient tolerated procedure well, had no immediate complications, and was transferred to recovery room in good, stable, and awake condition. BLU OLIVARES MD DR: TYSON/abimael JOB#: [id number] / [id number]
--- NOTE | 2019-05-14 12:56 | PDOC4 ---
OPERATIVE NOTE Date: Date: May 11, 2019 Pre-Op Diagnosis: post laminectomy syndrome Post-Op Diagnosis: same Procedure Performed: SCS generator and bifurcated lead extension replacement Surgeon: Gume Anesthesia Type: GET Blood Loss: 10cc Specimans Obtained: SCS generator Findings: see dictation Complications: none Operative Note: see dictation BLU OLIVARES MD May 14, 2019 12:56
== END ==
LOC: SURG 10:07
PROVIDERS: ATTEND Anesthesiology
DX: M54.16 Radiculopathy, lumbar region (principal); M54.12 Radiculopathy, cervical region; M96.1 Postlaminectomy syndrome, not elsewhere classified; G89.4 Chronic pain syndrome
CPT/HCPCS: 63685; A7015; C1713; C1767; C1787; J0330; J1100; J1956; J2001; J2370; J2405; J2704; J3010; J3490; J7040; J7120; J0171; Q9967

== ENCOUNTER → 2019-05-18 | Outpatient (CLI) | payer MEDICARE, OTHER ==
[2019-05-11 14:08] VITALS: BP 142/79
[~2019-05-18] MED LIST changes: -BACITRACIN 50,000 UNIT in IV NORMAL SALINE 500ML BAG 500 ML IRR ONE; -DEXAMETHASONE SOD PHOS 4 MG/ML VIAL ONE; -HYDROcodone/APAP 7.5/325MG 1 TAB TABLET ONE; -HYDROcodone/APAP 7.5/325MG 1 TAB TABLET PO ONE; -HYDROmorphone 2 MG/ML VIAL IV PRN; -IOHEXOL 300 MG/ML 50 ML VIAL. ONE; -IV RINGERS,LACTATED 1000ML 1,000 ML IV SCH; -LIDOCAINE 1% PF 2 ML VIAL. ID PRN; -LIDOCAINE 1%/EPI 1:100,000 20 ML VIAL. ONE; -LIDOCAINE 2% PF 5 ML VIAL. ONE; -MORPHINE SULFATE 2 MG/ML VIAL. IV PRN; -ONDANSETRON PF 4 MG/2 ML VIAL. IV PRN; -ONDANSETRON PF 4 MG/2 ML VIAL. ONE; -PHENYLEPHRINE in 0.9% NACL PF 1 MG/10 ML SYRINGE. IV ONE; -PROCHLORPERAZINE 10 MG/2 ML VIAL. IV PRN; -PROPOFOL 20 ML IV ONE; -SEVOFLURANE 61 TO 120 MINUTES. IH ONE; +SIMV20TA18 PO; -SIMV20TA3 PO; -SUCCINYLCHOLINE 200 MG/10 ML VIAL. ONE; -ePHEDrine PF IN SALINE 50 MG/10 ML SYRINGE. IV ONE; -fentaNYL PF VIAL 100 MCG/2 ML VIAL IV PRN; -fentaNYL PF VIAL 100 MCG/2 ML VIAL ONE
--- NOTE | 2019-05-18 11:44 | PAIN ---
DATE OF SERVICE: 05/18/2019 PROGRESS NOTE FOR PAIN CLINIC DIAGNOSES: 1. Chronic pain syndrome. 2. Cervical radiculopathy with cervical post-laminectomy syndrome. 3. Lumbar radiculopathy with spinal cord stimulator both cervical and lumbar. HISTORY OF PRESENT ILLNESS: The patient is a 58-year-old female who returns for followup status post spinal cord generator replacement 1 week ago. The patient followed up for wound check and postop followup today. The patient reports she is doing very well with good coverage of the stimulator into the neck, shoulders as well as in the low back and left leg. The patient reports still some pain at the area of the surgery in the right low back as previous sharp, tight, shooting, tingling, stabbing at times and constant, aching at times as well, but good coverage with the stimulator and the battery is working well, it is holding a charge. So, we replaced it back in 12/08 as well, but the new generator could not hold the charge and we replaced it again 1 week ago as well as bifurcated wire to go with it as well. The patient reports her pain over the past week has been 7 on a scale of 10 at its worst, 5 on average, 5 at its least and is 5 today. The patient reports no new motor or sensory deficits, no fevers. No drainage of the wound. No other signs of infection or other complications at this time. PHYSICAL EXAMINATION: VITAL SIGNS: The patient's blood pressure is 144/79, pulse 75, respirations 18, temperature 98.0 degrees Fahrenheit, height is 5 feet 3 inches, weight is 186 pounds. GENERAL: The patient is awake, alert, oriented, appropriate, very pleasant demeanor. HEENT: Head shows normocephalic, atraumatic. Extraocular movements are intact and symmetrical. CHEST: Shows normal on inspection. Breath sounds clear bilaterally. HEART: Shows S1, S2 clear. BACK: Shows spine grossly in midline. Well-healing surgical scars noted in the right low back from stimulator generator replacement. Bandages were taken down and examined. Steri-Strips in place and intact. No drainage. Mild erythema around the edges of the tape of the Steri-Strips only. No streaking, no drainage, no significant tenderness. Other than that, the medial aspect of the pocket site, the patient reports there is a pulling, stabbing sensation on the inside, but not on the skin with palpation. EXTREMITIES: The patient's lower extremities show deep tendon reflexes at 1+ in the patellar and tendo calcaneus tendons. Motor exam is strong with 5/5 dorsiflexion, extension, quadriceps and hamstring flexion and symmetrical. PLAN: Options were discussed with the patient. The patient's old chart was reviewed as her current medication regimen updated. Current review of systems updated today as well and we will have the patient take Keflex for some mild erythema around the wound site just to cover all bases as the patient does have a considerable distance from the clinic and has had some reactions with tape and infections from blisters from the tape in the past. We will do this Keflex 500 mg twice daily for 10 days. The patient was given instruction as well as side effects to be aware with the medication and the patient will follow up in approximately 1 month or sooner as necessary for a wound check at that time. The patient will continue to use her stimulator as instructed with charging, etc. She is getting good coverage currently. BLU OLIVARES MD DR: TYSON/abimael JOB#: [id number] / [id number]
== END | disposition home or self-care (01) ==
LOC: PNCL 09:59
PROVIDERS: ATTEND Anesthesiology
DX: M54.12 Radiculopathy, cervical region (principal); M96.1 Postlaminectomy syndrome, not elsewhere classified; M54.16 Radiculopathy, lumbar region; G89.4 Chronic pain syndrome
CPT/HCPCS: G0463

== ENCOUNTER → 2021-08-12 | Outpatient (CLI) | payer MEDICARE ==
[2019-05-11 14:08] VITALS: BP 142/79
[~2021-08-12] MED LIST changes: +CYCL10TA19 PO; -CYCL10TA2 PO; -LEVO75TA PO; +LEVO75TA90 PO; +MECL-75 PO; -MECL25TA3 PO; +METF500T16 PO; +MULT-445 PO; -MULT1TAB52 PO
--- NOTE | 2021-08-12 16:50 | PDOC ---
Progress Note - Pain Clinic Date of Service: DOS: DATE: 08/12/21 TIME: 16:36 Diagnosis: Dx: Chronic pain syndrome Cervical radiculopathy with cervical postlaminectomy syndrome and cervical spinal cord stimulator system Lumbar radiculopathy with lumbar degenerative disease and lumbar spinal cord stimulator system History or Present Illness: HPI: 61-year-old female with a history of dual spinal cord stimulator systems one cervical one lumbar with recent replacement of cervical stimulator with [employer] generator now patient having inability to charge the lumbar stimulator which is Re5ult getting error messages on the content engineer in the content engineer system as well as having no stimulation sensation from the stimulator which was working very well. Patient reports increased pain in the bilateral lower extremities mostly on the left side which was previously well covered with the stimulator system. Patient reports no loss of motor function no bowel or bladder incontinence but significant pain increasing in the low back and in ability to charge the lumbar stimulator system. Physical Exam: VS: Blood pressure is 120/79 pulse 77 respirations 18 temperature 98.2 F height 5 feet 3 inches weight is 147 pounds PE: PHYSICAL EXAMINATION: GENERAL: The patient is awake, alert, oriented, appropriate, very pleasant in demeanor HEENT: Shows normocephalic, atraumatic. Extraocular movements are intact and symmetrical. Oral cavity: Mucous membranes moist and pink. Dentition is intact. NECK: Shows anterior throat supple without palpable lymphadenopathy noted. Swallow reflex symmetrical. CHEST: Shows normal on inspection. Breath sounds are clear bilaterally. HEART: Shows S1, S2 clear. No murmurs auscultated. ABDOMEN: Soft, nontender, nondistended. No palpable organomegaly is noted. BACK: Shows spine grossly in the midline. Normal-appearing cervical lordotic c urvature. There is slightly increased thoracic kyphosis, some minor flattening of the lumbar lordotic curvature. Well-healed surgical scarring is noted in lumbar distribution with easily palpable spinal cord stimulator left and right posterior gluteus again well-healed surgical scars. Lumbar paraspinous muscles show symmetrical on inspection, on palpation shows some moderate tenderness diffusely throughout the upper, middle and lower distribution of the paraspinous muscles without specific trigger points, without radiation of pain. The patient has good rotational motion of the lumbar spine, both laterally as well as extension and flexion without significant difficulty. No tenderness over the spinous processes, sacrum or sacroiliac regions. EXTREMITIES: Lower extremities show deep tendon reflexes 1+ in the patellar and tendo calcaneus tendons. Motor exam is 4 on a scale of 5 with right dorsiflexion, extension, quadriceps and hamstring flexion and 4/5 on the left. Peripheral pulses are 1+ posterior tibial. No peripheral edema is noted bilaterally. Lower extremities are warm and dry to touch, equal in color and appearance. SKIN: Shows warm and dry, good turgor. No edema. No sores, rashes or bruising throughout. Procedure: Procedure: Options were discussed with the patient. Patient's old chart was viewed as her current medication regimen updated current review of systems updated today as well. We will make arrangements for replacement of the spinal cord stimulator generator which is no longer holding a charge as it is 13 years old. We will make arrangements with surgery for removal and replacement spinal cord stimulator generator. Medication Injected: Med Injected: None Condition at Discharge: Condition at Discharge: Condition at discharge is stable. BLU OLIVARES MD Aug 12, 2021 16:50
== END | disposition home or self-care (01) ==
LOC: PNCL 13:46
PROVIDERS: ATTEND Anesthesiology
DX: G89.4 Chronic pain syndrome (principal); M96.1 Postlaminectomy syndrome, not elsewhere classified; M54.12 Radiculopathy, cervical region; M51.16 Intervertebral disc disorders with radiculopathy, lumbar region; I10 Essential (primary) hypertension; E78.00 Pure hypercholesterolemia, unspecified; E66.9 Obesity, unspecified; K21.9 Gastro-esophageal reflux disease without esophagitis; E03.9 Hypothyroidism, unspecified; F32.9 Major depressive disorder, single episode, unspecified; Z87.891 Personal history of nicotine dependence; Z79.899 Other long term (current) drug therapy; Z98.890 Other specified postprocedural states; Z90.710 Acquired absence of both cervix and uterus; Z72.89 Other problems related to lifestyle; Z88.1 Allergy status to other antibiotic agents; Z88.8 Allergy status to other drugs, medicaments and biological substances
CPT/HCPCS: 99212; G0463

== ENCOUNTER 2021-08-28 10:31 | Day surgery (SDC) | payer MEDICARE ==
[~2021-08-28] VITALS: Ht 157.5 cm; Wt 63.0 kg
[~2021-08-28 10:31] MED LIST changes: +ATOR40TA59 PO; +CARV25TA2 PO; +EZET10TA20 PO; +HYDROmorphone 2 MG/ML INJ. IVP PRN; +IV RINGERS,LACTATED 1000ML 1,000 ML IV SCH; +LIDOCAINE 1%/EPI 1:100,000 20 ML VIAL. ONE; +MULT-647 PO; +PROCHLORPERAZINE 10 MG/2 ML VIAL. IVP PRN; +QUIN1TAB PO; +ceFAZolin SODIUM IV Push 1 GM VIAL. IVP PRN; +fentaNYL PF VIAL 100 MCG/2 ML VIAL IVP PRN
[2021-08-28] MEDS ORDERED: SUCCINYLCHOLINE 200 MG/10 ML VIAL. ONE (10:41)
[2021-08-28] MEDS ORDERED: ROCURONIUM 50 MG/5 ML VIAL. ONE (10:41)
[2021-08-28] MEDS ORDERED: LIDOCAINE 2% PF 5 ML VIAL. ONE (10:42)
[2021-08-28] MEDS ORDERED: fentaNYL PF VIAL 100 MCG/2 ML VIAL ONE (10:42)
[2021-08-28] MEDS ORDERED: ONDANSETRON PF 4 MG/2 ML VIAL. ONE (10:42)
[2021-08-28] MEDS ORDERED: ePHEDrine PF IN SALINE 50 MG/10 ML SYRINGE. IV ONE (10:42)
[2021-08-28] MEDS ORDERED: DEXAMETHASONE SOD PHOS 4 MG/ML VIAL ONE (10:42)
[2021-08-28] MEDS ORDERED: PROPOFOL 10 MG/ML (20ML) VIAL. IV ONE ×2 (10:43)
[2021-08-28 10:54] VITALS: BP 139/104
[2021-08-28] MEDS ORDERED: KETAMINE HCL IN NACL, ISO-OSM 50 MG/5 ML SYRINGE ONE (12:32)
[2021-08-28] MEDS ORDERED: PHENYLEPHRINE in 0.9% NACL PF 1 MG/10 ML SYRINGE. IV ONE (12:39)
[2021-08-28] MEDS ORDERED: GLYCOPYRROLATE 1 MG/5 ML VIAL. ONE (12:39)
[2021-08-28] MEDS ORDERED: NEOSTIGMINE METHYLSULFATE 5 MG/5 ML SYRINGE. ONE (12:48)
--- NOTE | 2021-08-28 13:15 | DISCH ---
DISCHARGE INSTRUCTIONS Condition on Discharge Condition on Discharge: Stable Activity After Discharge Activity Instructions for Disc: Activity as tolerated, Avoid exertion Bathing Instructions: Shower-keep dressing dry, No Tub Bath until see Lifting Instructions after Dis: No heavy lifting, Do not lift >10 pounds Exercise Instruction after Dis: Progress as tolerated Driving Instructions after Dis: Do not drive today Weight Bearing Status after Di: As tolerated Diet after Discharge Diet after Discharge: Regular Wound Incision Care Wound/Incision Care: Reinforce dressing PRN Contacting the DRSagar after DC Call your doctor for: Concerns you may have BLU OLIVARES MD Aug 28, 2021 13:15
[2021-08-28] MEDS ORDERED: MORPHINE SULFATE 2 MG/ML INJ. ONE (13:43)
[2021-08-28] MEDS: MORPHINE SULFATE 2 MG/ML INJ. IVP PRN ×2 (13:46→13:57)
--- NOTE | 2021-08-28 13:59 | PDOC4 ---
OPERATIVE NOTE Pre-Op Diagnosis: Chronic pain syndrome Lumbar radiculopathy with lumbar degenerative disease Malfunctioning/nonfunctioning spinal cord stimulator generator Post-Op Diagnosis: Same Procedure Performed: Removal and replacement spinal cord stimulator generator Surgeon: Gume Anesthesia Type: General Blood Loss: 5ml Specimans Obtained: None Findings: See dictation Complications: None Operative Note: Patient was consented for spinal cord stimulator generator removal and replacement. Risk were discussed including but not limited to bleeding infection possibility of revision of stimulator leads as well, postoperative pain as well as poor results regarding chronic pain control. Patient understands wished to proceed Patient was taken to operating [facility]. 2 and general anesthesia endotracheal tube was induced patient was turned to the prone position with all pressure points padded and breath sounds clear and equal bilaterally. Patient's low back and right hip and gluteus closed sterilely prepped and draped the usual fashion. P rep was allowed to dry for 3 minutes prior to incision. Examining patient's left superior gluteus joint easily palpable stimulator generator with well- healed surgical scarring. Using 1% lidocaine with 1-200,000 epinephrine in a transverse fashion was anesthetized subcutaneously after this a incision was made using a 10 blade scalpel in a transverse fashion to dissect down to the stimulator pocket without difficulty. Minimal hemorrhage was experienced as well not requiring electrocautery. Pocket was then opened using Metzenbaum scissors with both blunt and dull dissection and the digital separation with digital dissection the stimulator was used identified and easily expressed from the pocket and intact with the wires intact x2. Using the stimulator scre wdriver the leads were loosened and removed from the existing stimulator. New stimulator was then examined and leads placed within the receptacles of the new stimulator generator with impedance checked showing good impedance at all levels. Leads were then secured with locking screws. At this time the pocket was examined and irrigated x3 with bacitracin irrigation, no local hemorrhage was noted. New generator was then placed within the pocket with good fitment and no excess mobility with the wires posterior to the generator itself. At this time the wound was then closed with 2-0 interrupted Vicryl for the camper's and Divya's fascial layers and 3 oh the particular running fashion for the skin closure. Patient tolerated the procedure well had no immediate complications and was transferred to the recovery room in good stable and awake condition. BLU OLIVARES MD Aug 28, 2021 13:59
[2021-08-28] MEDS ORDERED: HYDROcodone/APAP 10/325 1 TAB TABLET PO ONE (14:15)
[2021-08-28] MEDS ORDERED: TETRACAINE 0.5% OPHTH SOLUTION 4ML BOTTLE. OS ONE (14:15)
[2021-08-28 14:25] VITALS: BP 146/93
== END 2021-08-28 15:00 | disposition home or self-care (01) ==
LOC: SURG 10:31
PROVIDERS: ATTEND Anesthesiology
DX: M51.16 Intervertebral disc disorders with radiculopathy, lumbar region (principal); G89.4 Chronic pain syndrome; I10 Essential (primary) hypertension; E78.00 Pure hypercholesterolemia, unspecified; E66.9 Obesity, unspecified; K21.9 Gastro-esophageal reflux disease without esophagitis; E11.9 Type 2 diabetes mellitus without complications; F32.9 Major depressive disorder, single episode, unspecified; M19.90 Unspecified osteoarthritis, unspecified site; E03.9 Hypothyroidism, unspecified; Z90.710 Acquired absence of both cervix and uterus; Z79.899 Other long term (current) drug therapy; Z98.890 Other specified postprocedural states; Z79.84 Long term (current) use of oral hypoglycemic drugs; Z87.891 Personal history of nicotine dependence; Z72.89 Other problems related to lifestyle
CPT/HCPCS: 63685; 82962; A4364; A4930; A6219; C1822; J0330; J0690; J1100; J2270; J2370; J2405; J2704; J2710; J3010; J3490; 76000; A4452; C1787

== ENCOUNTER → 2021-09-04 | Outpatient (CLI) | payer MEDICARE ==
[2021-08-28 14:25] VITALS: BP 146/93
[~2021-09-04] MED LIST changes: -HYDROmorphone 2 MG/ML INJ. IVP PRN; -IV RINGERS,LACTATED 1000ML 1,000 ML IV SCH; -LIDOCAINE 1%/EPI 1:100,000 20 ML VIAL. ONE; -PROCHLORPERAZINE 10 MG/2 ML VIAL. IVP PRN; -ceFAZolin SODIUM IV Push 1 GM VIAL. IVP PRN; -fentaNYL PF VIAL 100 MCG/2 ML VIAL IVP PRN
--- NOTE | 2021-09-04 14:12 | PDOC ---
Progress Note - Pain Clinic Date of Service: DOS: DATE: 09/04/21 TIME: 14:07 Diagnosis: Dx: Chronic pain syndrome Cervical radiculopathy with cervical postlaminectomy syndrome Lumbar radiculopathy with lumbar degenerative disc disease History or Present Illness: HPI: 61-year-old female returns for follow-up status post spinal cord stimulator generator replacement 1 week ago for lower system lumbar system. Patient reports that she is doing very well still some stimulation that is not quite dialed in however getting some good relief in the low back and left leg patient reports the area of the bandages however have been irritating her as she does have a tape sensitivity and has been itching and irritating on the skin over the bandages. Patient reports no fevers no drainage from the site or other concerns but that skin is irritated and patient does have a significant tape sensitivity. Patient reports pain is about an 8 on scale 10 is worse over the past week 6 on average 6 its least is a 6 today and most of it is skin irritation on further questioning patient reports still pain in the back as well as neck and shoulders but the pain in the back is sharp shooting can be burning and constant at times but overall still getting the new programs dialed in with her neurostimulator ge nerator. Patient reports no bowel or bladder incontinence no loss of motor function or deficits. Physical Exam: VS: Blood pressure is 114/68 pulse 77 respirations 16 temperature 97.2 F weight 144 pounds PE: PHYSICAL EXAMINATION: GENERAL: The patient is awake, alert, oriented, appropriate, very pleasant in demeanor HEENT: Shows normocephalic, atraumatic. Extraocular movements are intact and symmetrical. Oral cavity: Mucous membranes moist and pink. Dentition is intact. NECK: Shows anterior throat supple without palpable lymphadenopathy noted. Swallow reflex symmetrical. CHEST: Shows normal on inspection. Breath sounds are clear bilaterally. HEART: Shows S1, S2 clear. No murmurs auscultated. ABDOMEN: Soft, nontender, nondistended. No palpable organomegaly is noted. BACK: Shows spine grossly in the midline. Normal-appearing cervical lordotic curvature. Cervical paraspinous muscles show symmetrical with inspection, palpation some moderate tenderness diffusely bilaterally diffusely without significant radiation. Patient shows full rotation motion cervical spine both laterally as well as extension flexion without significant difficulty. There is slightly increased thoracic kyphosis, some minor flattening of the lumbar lordotic curvature. Site of surgical scar in the left gluteus shows Steri- Strips in place with some very mild skin scabbing no erythema or drainage there is some mildly erythematous area from contact dermatitis from the adhesive ban dage and the tape surrounding the upper and left side of the wound but no erythema on the wound itself. Lumbar paraspinous muscles show symmetrical on inspection, on palpation shows some moderate tenderness diffusely throughout the upper, middle and lower distribution of the paraspinous muscles, but without specific trigger points, without radiation of pain. The patient has good rotational motion of the lumbar spine, both laterally as well as extension and flexion without significant difficulty. No tenderness over the spinous processes, sacrum or sacroiliac regions. EXTREMITIES: Lower extremities show deep tendon reflexes 1+ in the patellar and tendo calcaneus tendons. Motor exam is 4 on a scale of 5 with right dorsiflexion, extension, quadriceps and hamstring flexion and 4/5 on the left. Peripheral pulses are 1+ posterior tibial. No peripheral edema is noted bilaterally. Lower extremities are warm and dry to touch, equal in color and appearance. Upper extremities show deep tendon reflexes 2+ in the bicep triceps tendons, motor exam strong with real estate leasing manager strength rated 5 out of 5 as is bicep and tricep flexion. Peripheral pulses are 2+ radial bilaterally. SKIN: Shows warm and dry, good turgor. No edema. No sores, rashes or bruising throughout. Procedure: Procedure: Options were discussed with the patient. Patient's old chart was reviewed as her current medication regimen updated current review of systems updated today as well. We will redress patient's bandage with very small amount of tape patient will be allowed to get the area wet says he is in a shower but without any scrubbing with washing or drying as well as well discussed with the patient today. Spinal cord stimulator graphic art sales representative present as well and will reprogram for settings with the new generator. Medication Injected: Med Injected: None Condition at Discharge: Condition at Discharge: Condition at discharge is stable. BLU OLIVARES MD Sep 04, 2021 14:12
== END | disposition home or self-care (01) ==
LOC: PNCL 13:15
PROVIDERS: ATTEND Anesthesiology
DX: G89.4 Chronic pain syndrome (principal); M51.16 Intervertebral disc disorders with radiculopathy, lumbar region; M96.1 Postlaminectomy syndrome, not elsewhere classified; I10 Essential (primary) hypertension; E78.00 Pure hypercholesterolemia, unspecified; K21.9 Gastro-esophageal reflux disease without esophagitis; E66.9 Obesity, unspecified; E03.9 Hypothyroidism, unspecified; E11.9 Type 2 diabetes mellitus without complications; F32.9 Major depressive disorder, single episode, unspecified; Z79.899 Other long term (current) drug therapy; Z98.890 Other specified postprocedural states; Z87.891 Personal history of nicotine dependence; Z72.89 Other problems related to lifestyle; Z88.1 Allergy status to other antibiotic agents; Z88.8 Allergy status to other drugs, medicaments and biological substances
CPT/HCPCS: 99212; G0463

== ENCOUNTER → 2021-11-30 | Outpatient (CLI) | payer MEDICARE ==
[~2021-11-30] MED LIST changes: +BUPIVACAINE MPF 0.25% 10 ML VIAL. ONE; +DEXAMETHASONE PRES.FREE 10 MG/ML VIAL. ONE
--- NOTE | 2021-11-30 13:55 | PDOC ---
Progress Note - Pain Clinic Date of Service: DOS: DATE: 11/30/21 TIME: 13:50 Diagnosis: Dx: Chronic pain syndrome Cervical radiculopathy with cervical postlaminectomy syndrome with spinal cord stimulator Lumbar radiculopathy with lumbar degenerative disease and lumbar spinal cord stimulator Bilateral first carpometacarpal joint pain with osteoarthritis History or Present Illness: HPI: 61-year-old female returns for follow-up status post stimulator replacement August of this year with good coverage not completely covered but patient presented for reprogramming September 04 and reprogramming again today patient second main complaint today is bilateral base of thumb pain. Patient had this on the left hand previously and did very well with carpometacarpal joint injections in the past but now the right hand is equally as painful in the carpometacarpal joint on the right side. Patient reports an 8 on scale 10 is worse over the past week 7 on average 6 its least is a 7 today described as sharp and shooting stabbing in the thumb itself patient also has pain in her low back and into the left lower extremity posterior gluteus posterior thigh worse with walking and standing but fairly well controlled with the stimulator at this time and what will be reprogrammed today with the [employer] account representative as well. Patient reports difficulty with opening jar lids at home secondary to inability to twist jars and other fine motor movements with the thumb involved with both the right and left upper extremities at this time. Patient reports no loss of motor function but significant pain with mobility in the base of the thumb on the bilateral hands right equal to left. Physical Exam: VS: Blood pressure is 141/61 pulse 80 respirations 16 temperature 98.4 F weight is 154 pounds. PE: PHYSICAL EXAMINATION: GENERAL: The patient is awake, alert, oriented, appropriate, very pleasant in demeanor HEENT: Shows normocephalic, atraumatic. Extraocular movements are intact and symmetrical. Oral cavity: Mucous membranes moist and pink. Dentition is intact. NECK: Shows anterior throat supple without palpable lymphadenopathy noted. Swallow reflex symmetrical. CHEST: Shows normal on inspection. Breath sounds are clear bilaterally. HEART: Shows S1, S2 clear. No murmurs auscultated. ABDOMEN: Soft, nontender, nondistended. No palpable organomegaly is noted. BACK: Shows spine grossly in the midline. Normal-appearing cervical lordotic curvature. There is slightly increased thoracic kyphosis, some minor flattening of the lumbar lordotic curvature. Lumbar paraspinous muscles show symmetrical on inspection, on palpation shows some moderate tenderness diffusely throughout the upper, middle and lower distribution of the paraspinous muscles bilaterally and also into the lower thoracic paraspinous musculature, firm and tender, but without specific trigger points, without radiation of pain. The patient has good rotational motion of the lumbar spine, both laterally as well as extension and flexion without significant difficulty. No tenderness over the spinous processes, sacrum or sacroiliac regions. EXTREMITIES: Lower extremities show deep tendon reflexes 1+ in the patellar and tendo calcaneus tendons. Motor exam is 4 on a scale of 5 with right dorsiflexion, extension, quadriceps and hamstring flexion and 4/5 on the left. Peripheral pulses are 1+ posterior tibial. No peripheral edema is noted bilaterally. Lower extremities are warm and dry to touch, equal in color and appearance. 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 SKIN: Shows warm and dry, good turgor. No edema. No sores, rashes or bruising throughout. Procedure: Procedure: Options were discussed with patient. Patient's old chart was reviewed as her current medication regimen updated current review of systems updated today as well. We will proceed with bilateral carpometacarpal joint injections with fluoroscopic guidance today. Risk were discussed including but not limited to bleeding infection possibility of intravascular injection sequelae spread of local anesthetic and numbness exposure fluoroscopy side effects steroid medication and poor results regarding pain control. Patient understands and wishes to proceed. Patient will return to clinic in approximately 2 weeks for follow-up, was counseled as to return appointment, activity level, and side effect to be aware of. Medication Injected: Med Injected: Under sterile prep and drape patient's bilateral wrists were identified using C- arm fluoroscopic guidance first right than the left with using a 25-gauge needle under direct fluoroscopic vision the first (thumb) carpometacarpal joint was visualized and entered with a 25-gauge needle after negative aspiration a total of 1 cc 0.25% ropivacaine and 5 mg dexamethasone was injected. This was repeated for the left side at the same technique. Patient tolerated the procedure well and had no complications. Condition at Discharge: Condition at Discharge: Condition at discharge is stable, patient tolerated procedure well and had no complications. BLU OLIVARES MD Nov 30, 2021 13:55
--- NOTE | 2021-11-30 13:56 | PDOC4 ---
Procedure Note: ICD 10 Code: ICD 10 Code: M18.0 Procedure Note: Patient was consented for bilateral first carpometacarpal joint injections with fluoroscopic guidance. Risk were discussed including but not limited to bleeding infection possibility of intravascular injection sequelae spread local anesthetic numbness fluoroscopy side effects steroid medication control. Patient understands wished to proceed. Under sterile prep and drape patient's bilateral wrists were identified using C- arm fluoroscopic guidance first right than the left with using a 25-gauge needle under direct fluoroscopic vision the first (thumb) carpometacarpal joint was visualized and entered with a 25-gauge needle after negative aspiration a total of 1 cc 0.25% ropivacaine and 5 mg dexamethasone was injected. This was repeated for the left side at the same technique. Patient tolerated the procedure well and had no complications. BLU OLIVARES MD Nov 30, 2021 13:56
== END | disposition home or self-care (01) ==
LOC: PNCL 12:55
PROVIDERS: ATTEND Anesthesiology
DX: M18.0 Bilateral primary osteoarthritis of first carpometacarpal joints (principal); G89.4 Chronic pain syndrome; M51.16 Intervertebral disc disorders with radiculopathy, lumbar region; M96.1 Postlaminectomy syndrome, not elsewhere classified; I10 Essential (primary) hypertension; E78.00 Pure hypercholesterolemia, unspecified; E66.9 Obesity, unspecified; K21.9 Gastro-esophageal reflux disease without esophagitis; E11.9 Type 2 diabetes mellitus without complications; E03.9 Hypothyroidism, unspecified; F32.9 Major depressive disorder, single episode, unspecified; Z79.84 Long term (current) use of oral hypoglycemic drugs; Z79.899 Other long term (current) drug therapy; Z90.710 Acquired absence of both cervix and uterus; Z98.890 Other specified postprocedural states; Z87.891 Personal history of nicotine dependence; Z72.89 Other problems related to lifestyle; Z88.1 Allergy status to other antibiotic agents; Z88.8 Allergy status to other drugs, medicaments and biological substances
CPT/HCPCS: 20605; 77002; J1100; J3490